=== PATIENT | male | born 1955 | race Hispanic/Latino ===

== ENCOUNTER 2019-05-03 10:54 | Inpatient (IN) ==
[2019-05-03] MEDS ORDERED: XYLOCAINE 1% INJ ONE ×2 (11:44→11:46)
[2019-05-03 13:04] LABS: BASO# 0.01 X1000 (0.0-0.2); BASO% 0.1 % (0.0-0.8); EOS# 0.06 X1000 (0.0-0.7); EOS% 0.7 % (0.0-10.0); HEMATOCRIT 40.6 % (42.0-52.0); HEMOGLOBIN 13.8 g/dL (14.0-18.0); IMM GRAN# 0.03 X1000 (0.0-0.04); IMM GRAN% 0.4 % (0.0-0.5); LYMPH# 1.06 X1000 (1.2-3.4); LYMPH% 12.4 % (20.5-51.1); MCH 30.2 PG (27-31); MCV 88.8 FL (81-99); MONO# 0.86 X1000 (0.11-0.59); MPV 9.7 FL (7.4-10.4); NEUT# 6.55 X1000 (1.4-6.5); NEUT% 76.4 % (42.2-75.2); PLT 330 X1000 (130-400); RBC 4.57 XMIL (4.7-6.1); RDW 12.2 % (11.5-14.5); WBC 8.57 X1000 (4.8-10.8)
[2019-05-03 13:32] LABS: HEMOGLOBIN A1C 9.1 % (4.8-6.0)
[2019-05-03 13:38] LABS: AGAP 7; ALB/GLOB RATIO 1.1; ALKALINE PHOSPHATASE 107 U/L (32-122); BUN 19 mg/dL (8-22); CALCIUM 9.6 mg/dL (8.8-10.2); CHLORIDE 103 mmol/L (98-107); COSMO 282; CREATININE 0.8 mg/dL (0.7-1.2); ESTIMATED GFR > 60; GLUCOSE 171 mg/dL (70-104); GOT 8 U/L (10-34); GPT 8 U/L (10-44); POTASSIUM 4.5 mmol/L (3.5-5.1); SODIUM 138 mmol/L (136-145); TCO2 28 mmol/L (25-35); TOTAL BILIRUBIN 0.27 mg/dL (0.20-1.00); TOTAL PROTEIN 7.5 g/dL (6.3-8.3)
--- NOTE | 2019-05-03 14:37 | PROVIDER DOCUMENTATION ---
This chart was entered by Rose Barnett Scribe, acting as scribe for Get Nino MD. HPI-Rash/Wound/ReCheck - General Chief Complaint: Sores/Lesions Stated Complaint: R-FOOT INFECTION Time Seen by Provider: 05/03/19 11:28 Source: family Allergies/Adverse Reactions: Allergies Allergy/AdvReac Type Severity Reaction Status Date / Time No Known Allergies Allergy Verified 04/26/19 11:49 Home Medications: Home Medication List Medication Instructions Recorded Confirmed Last Taken Type Carvedilol [Coreg] 1 tab PO BID 04/26/19 04/26/19 Unknown History Gabapentin 600 mg PO BID #10 tab 04/26/19 Unknown Rx Insulin Glargine [Basaglar] 35 units SQ DAILY 04/26/19 04/26/19 Unknown History Tamsulosin HCl 1 cap PO BID 04/26/19 04/26/19 Unknown History - History of Present Illness-Dermatology Nature of Presenting Problem: Patient is a 64 year old male who presents with blister to right foot. Family states blister has been present for 2 days. Denies fever and chills. Location: reports: feet (right lateral foot) Quality: reports: painful Severity: reports: mild Onset/Duration: reports: 2 days ago Timing: reports: still present Context/Associated Symptoms: reports: blisters Locality of Occurance: Home Similar Symptoms Previously?: Yes (present for 2 days) Recently seen or treated by another doctor?: No Review of Systems - Adult - REVIEW OF SYSTEMS - ADULT Constitutional: reports: no symptoms reported. denies: chills, fever, fatique Eyes: reports: no symptoms reported Ears, Nose, Mouth & Throat: reports: no symptoms reported Cardiovascular: reports: no symptoms reported Respiratory: reports: no symptoms reported Gastrointestinal: reports: no symptoms reported Genitourinary: reports: no symptoms reported Musculoskeletal: reports: no symptoms reported Integumentary: reports: see HPI, other (blister to right lateral foot). denies: hives Neurological: reports: no symptoms reported. denies: dizziness/vertigo, numbness, paresthesia Psychiatric: reports: no symptoms reported Endocrine: reports: no symptoms reported Hematologic/Lymphatic: reports: no symptoms reported Allergic/Immunologic: reports: no symptoms reported All Other Systems: Reviewed and Negative Past History - Adult - PAST MEDICAL HISTORY-ADULT Review of Records: reports: Old Records Reviewed, Nursing Assessment Review, Medications Reviewed, Social history reviewed & non-contributory. Major Childhood Illnesses: reports: denies history Cardiovascular: reports: HTN Respiratory: reports: other (recent pneumonia/hospitalized) Gastrointestinal: reports: denies history Obstetrical/Gynecological: reports: denies history Genitourinary: reports: ESRD, kidney disease Musculoskeletal: reports: arthritis Neurological: reports: denies history Endocrine/Immune: reports: Diabetes, other (ESRD) Other Conditions: reports: denies history - PRIOR SURGERIES/PROCEDURES Surgical/Procedure History: reports: appendectomy, other (amputation rt great toe; av shunt left arm; right 4th digit amputation; kidney transplant; left BKA) - PRIOR HOSPITALIZATIONS Prior Hospitalizations: reports: none - IMMUNIZATION STATUS Childhood Immunizations: See Nurse Assessment Flu Vaccine: See Nurse Assessment - FAMILY HISTORY Family History: reviewed, not pertinent - SOCIAL HISTORY Smoking: cigarettes (former) Alcohol Use Frequency: sober (former use) Living Situation: family Physical Exam-General - PHYSICAL EXAM-ADULT Initial Vital Signs Reviewed: Yes - CONSTITUTIONAL General Appearance: alert, no apparent distress. negative: lethargic, slow to respond - EYES Eyes: PERRL/EOMI - HEAD, EARS, NOSE, MOUTH & THROAT HENMT: moist mucous membranes - NECK Neck: full range of motion, supple - RESPIRATORY Respiratory: chest non-tender, lungs clear, normal breath sounds, no respiratory distress. negative: crackles, rhonchi, wheezing - CARDIOVASCULAR Cardiovascular: normal peripheral pulses, regular rate, rhythm, no edema, no JVD , no murmur. negative: tachycardia, systolic murmur - GASTROINTESTINAL (ABDOMEN) Abdominal Exam: normal bowel sounds, non tender, soft. negative: guarding, rebound - MUSCULOSKELETAL Extremity: other (right great toe amputation; right 4th finger amputation; left BKA; blister to right lateral foot. foreign body present to right lateral foot centered in blister. cellulitis of volar mid right foot but no ascending redness.). negative: deformity, swelling - SKIN Integumentary: normal color, normal turgor, warm/dry, other (blister to right lateral foot. foreign body present to right lateral foot near blister.). negative: cyanosis, decubitus, erythema - NEUROLOGIC Neurologic: director data analytics II-XII nml as tested, grossly normal. negative: aphasia, facial droop, motor weakness - PSYCHIATRIC Psych/Mental Status: normal mood/affect. negative: anxious, paranoid Progress - PLAN OF CARE/RESULTS Progress/Plan/Lab Results: Vital Signs - 8 hr 05/03/19 10:58 05/03/19 11:31 05/03/19 11:40 Temperature 97.5 F L Pulse Rate 83 Respiratory Rate 18 Blood Pressure 187/94 178/79 O2 Sat by Pulse Oximetry 99 100 98 05/03/19 11:50 05/03/19 12:00 05/03/19 12:10 Temperature Pulse Rate Respiratory Rate Blood Pressure O2 Sat by Pulse Oximetry 98 97 99 05/03/19 12:20 05/03/19 12:30 05/03/19 12:40 Temperature Pulse Rate Respiratory Rate Blood Pressure O2 Sat by Pulse Oximetry 98 99 99 05/03/19 12:50 05/03/19 13:00 05/03/19 13:10 Temperature Pulse Rate Respiratory Rate Blood Pressure O2 Sat by Pulse Oximetry 98 99 99 05/03/19 13:17 Temperature Pulse Rate Respiratory Rate Blood Pressure 201/90 O2 Sat by Pulse Oximetry 98 05/03/19 13:10 Gram Stain - Final Foot - Right Laboratory Results - last 24 hr 05/03/19 05/03/19 05/03/19 11:04 12:44 12:44 WBC 8.57 RBC 4.57 L Hgb 13.8 L Hct 40.6 L MCV 88.8 MCH 30.2 MCHC 34.0 RDW Std Deviation 12.2 Plt Count 330 MPV 9.7 Immature Gran % (Auto) 0.4 Neut % (Auto) 76.4 H Lymph % (Auto) 12.4 L [place] % (Auto) 10.0 H Eos % (Auto) 0.7 Baso % (Auto) 0.1 Immature Gran # (Auto) 0.03 Neut # (Auto) 6.55 H Lymph # (Auto) 1.06 L [place] # (Auto) 0.86 H Eos # (Auto) 0.06 Baso # (Auto) 0.01 Sodium 138 Potassium 4.5 Chloride 103 Carbon Dioxide 28 Anion Gap 7 BUN 19 Creatinine 0.8 Estimated GFR/1.73 m2 > 60 BUN/Creatinine Ratio 24 Glucose 171 H POC Glucose 219 H Estimat Average Glucose Hemoglobin A1c Calculated Osmolality 282 Calcium 9.6 Total Bilirubin 0.27 AST 8 L ALT 8 L Alkaline Phosphatase 107 Total Protein 7.5 Albumin 4.0 Globulin 3.5 Albumin/Globulin Ratio 1.1 Plasma Lactate 05/03/19 05/03/19 12:44 12:44 WBC RBC Hgb Hct MCV MCH MCHC RDW Std Deviation Plt Count MPV Immature Gran % (Auto) Neut % (Auto) Lymph % (Auto) [place] % (Auto) Eos % (Auto) Baso % (Auto) Immature Gran # (Auto) Neut # (Auto) Lymph # (Auto) [place] # (Auto) Eos # (Auto) Baso # (Auto) Sodium Potassium Chloride Carbon Dioxide Anion Gap BUN Creatinine Estimated GFR/1.73 m2 BUN/Creatinine Ratio Glucose POC Glucose Estimat Average Glucose 214 Hemoglobin A1c 9.1 H Calculated Osmolality Calcium Total Bilirubin AST ALT Alkaline Phosphatase Total Protein Albumin Globulin Albumin/Globulin Ratio Plasma Lactate 1.4 Orders Category Date Time Status Saline Loc NOW Care 05/03/19 11:40 Active A1C HGB W EST AVG GLUCOSE [CHEM] Stat Lab 05/03/19 12:44 Completed BLOOD CULTURE [BLDCUL] Stat Lab 05/03/19 13:08 Results CBC WITH ELECTRONIC DIFF [HEME] Stat Lab 05/03/19 12:44 Completed COMPREHENSIVE METABOLIC PANEL [CHEM] Stat Lab 05/03/19 12:44 Completed LACTATE, PLASMA [CHEM] Stat Lab 05/03/19 12:44 Completed URINALYSIS W/POSS RFLX CULT [URINALYSIS] Stat Lab 05/03/19 11:45 Uncollected WOUND CULTURE INC GRAM STAIN [RM] Routine Lab 05/03/19 13:10 Results Lidocaine 1% [Xylocaine 1%] Med 05/03/19 11:44 Discontinued 20 ml INJ NOW ONE Lidocaine 1% [Xylocaine 1%] Med 05/03/19 11:46 Discontinued 20 ml INJ NOW ONE Result Diagrams: 05/03/19 12:44 05/03/19 12:44 Procedures - ADDITIONAL PROCEDURES Additional Procedure: OTHER (foreign body removal from right lateral foot) Consent Form Signed if Applicable?: Yes Site Prep: Hibiclens Anesthetic: 1%, Lidocaine/Xylocaine Volume of Anesthetic (ml's): 4 Description of Procedure (Other): Dr. Nino injected 4 mL of Lidocaine into patient's right lateral foot. Dr. Nino used a 11 blade to remove a 1.2 cm wooden toothpick from patient's right lateral foot. Wound was packed and a sterile dressing was applied. Departure - Departure Date of Disposition Decision: 05/03/19 Time of Disposition Decision: 14:20 DIAGNOSIS: Foreign body in foot, right, Cellulitis of right foot, Diabetes, Renal transplant recipient, Immunodeficiency secondary to chemotherapy Disposition: ADMITTED INPATIENT 09 Certified Medical Emergency: Emergent Condition: Stable Referrals and Follow-Ups: None,PCP [Primary Care Provider] - - Critical Care Note This patient required my direct & personal management of CC.: Yes Total Time (mins): 35 Critical Care Statement: This patient required my direct personal management to treat or rule out processes, the absence of which, could potentiallly result in sudden, clinically significant life or limb threatening deterioration. Attestation - Physician/ VLADIMIR Attestation The physician spent face to face time with patient:: Yes Advanced Practice Provider documentation review:: Supervising physician onsite and consulted in the evaluation and care of this patient. The physician did have a face to face encounter with the patient. This chart was documented by the indicated scribe, (Rose Barnett Scribe) and accurately reflects the services I performed and decisions made by me, Get Nino MD, as attested by the provider's signature.
[2019-05-03 15:03] LABS: URINE SOURCE CLEAN CATCH
[2019-05-03 15:07] LABS: BILIRUBIN URINE NEGATIVE (NEGATIVE); BLOOD URINE NEGATIVE (NEGATIVE); COLOR YELLOW; GLUCOSE URINE >1000 mg/dL (NEGATIVE); KETONE URINE NEGATIVE (NEGATIVE); LEUKOCYTES URINE NEGATIVE (NEGATIVE); NITRITE URINE NEGATIVE (NEGATIVE); PH URINE 7.5; PROTEIN URINE NEGATIVE (NEGATIVE); SP GRAVITY URINE 1.014; TURBIDITY URINE CLEAR (CLEAR); UR EPITHELIAL CELLS <10 /HPF (<10); URINE BACTERIA NEGATIVE /HPF; URINE RBC <10 /HPF (<10); URINE WBC <10 /HPF (<10); UROBILINOGEN URINE NORMAL (NORMAL)
[2019-05-03] MEDS ORDERED: TYLENOL PO PRN (15:16)
[2019-05-03] MEDS ORDERED: ZOFRAN IV PRN (15:16)
[2019-05-03] MEDS ORDERED: VANCOMYCIN IV PER PHARMACY MISC SCH (15:30)
[2019-05-03] MEDS ORDERED: VANCOMYCIN 2,400 MG in NS 500 ML IV ONE (16:00)
[2019-05-03] MEDS: NS 1,000 ML IV SCH (16:27)
[2019-05-03] MEDS: NORCO-7.5 PO PRN (16:38)
[2019-05-03] MEDS: LOVENOX SUBQ SCH (16:38)
[2019-05-03] MEDS: HUMALOG SUBQ SCH (16:38)
[2019-05-03] MEDS: HUMULIN R SUBQ SCH ×2 (16:39→21:36)
--- NOTE | 2019-05-03 19:09 | HISTORY AND PHYSICAL ---
CHIEF COMPLAINT: Right foot pain. HISTORY OF PRESENT ILLNESS: This is a 64-year-old male who presented to the ER today with right foot pain that had been worsening for the past week. The patient presented to the [facility] a week ago with right foot pain and was subsequently discharged from the ER. The patient presents again to the ER today with the same pain to the right outer foot. The ER physician, after examining the right outer foot, noted a blister. After doing an incision and drainage to the right outer foot, he noted there was a toothpick down inside the foot. The toothpick was removed. The wound was cleaned and packed with iodoform strips, and labs were obtained on this patient. The patient has a past medical history of a kidney transplant at [facility] 3 years ago, hypertension, diabetes and hyperlipidemia. The patient also has a left BKA. The patient is receiving tacrolimus and CellCept for his transplant medications. After speaking with the transplant doctors at [facility], they recommended the patient to be on vancomycin and Zosyn, and be admitted to the hospital. [facility] is currently on diversion, and they were not able to accept the patient at the present time. The patient has some complaints of pain to the right outer foot. No other pain problems at this time are noted. The patient denies any nausea or vomiting, any weakness or any chest pain. The patient is stating that he is hungry at this present time. The patient does not speak Grenadian and requires an knit goods press hand. PAST MEDICAL HISTORY: Hypertension, diabetes, hyperlipidemia. PAST SURGICAL HISTORY: Kidney transplant 3 years ago at [facility], left BKA, left 5th toe amputation, left arm dialysis shunt. FAMILY HISTORY: No significant family history reported. SOCIAL HISTORY: The patient previously used to smoke half a pack of cigarettes per day, but he quit smoking in 1988. He does not use any recreational drugs and he denies any alcohol abuse. ALLERGIES: No known drug allergies. CURRENT MEDICATIONS: Coreg 6.25 mg p.o. b.i.d.; gabapentin 600 mg p.o. b.i.d.; NovoLog insulin 18 units subcutaneous before meals; insulin glargine 35 units subcutaneous daily; moxifloxacin 400 mg p.o. daily; mycophenolate mofetil 150 mg p.o. daily; Prograf 0.5 mg p.o. daily; Flomax 0.4 mg p.o. b.i.d. LABORATORY DATA: White blood cell count 8.57, hemoglobin 13.8, hematocrit 40.6, platelet count 330,000. Sodium 138, potassium 4.5, carbon dioxide 28, BUN 19, creatinine 0.8, GFR is greater than 60, glucose 171. A1c is 9.1. Calcium is 9.6, AST is 8, ALT is 8. Urinalysis is positive for a large amount of glucose, negative for everything else. REVIEW OF SYSTEMS: A 12-point review of systems was obtained. All are negative except for what is stated above in the HPI. PHYSICAL EXAMINATION: VITAL SIGNS: Temperature 97.5 degrees, pulse rate 74, respiratory rate 18, blood pressure 197/94, O2 saturation 98%. GENERAL: This is a well-nourished, well-developed 64-year-old male, in no acute distress at the present time, lying in the ER stretcher. HEENT: Atraumatic, normocephalic. Pupils equal, round and reactive to light. Mucous membranes are dry. No dentition noted. NECK: Supple. No lymphadenopathy. Trachea is midline. No JVD. CARDIOVASCULAR: Regular rate and rhythm. No murmurs, gallops or rubs appreciated. RESPIRATORY: Lungs are clear. Equal chest expansion. Respirations are nonlabored with no accessory muscle usage. GASTROINTESTINAL: Abdomen is soft, nontender, nondistended, with bowel sounds present x4. NEUROLOGICAL: The patient is awake, alert and oriented. Follows all commands. Cranial nerves intact. MUSCULOSKELETAL: The patient moves all extremities. The patient has painful movement noted to the right foot. There is a BKA noted to the left lower extremity but full movement noted. The patient does have prosthesis. SKIN: Warm, dry. Wound noted to the right outer foot with dressing intact. No bruises noted. ASSESSMENT: 1. Cellulitis. 2. Hypertension. 3. Diabetes. 4. Right kidney transplant from [facility], on immunosuppressive therapy. PLAN: We will admit this patient to the medical floor. Place on pvc monitor Start this patient on vancomycin and Zosyn. Consult wound nurse for wound care. Check FSBS ACHS and Sliding Scale Insulin low level as needed per protocol. Give IV fluid hydration. Repeat labs in the morning. Give pain medications as needed for pain. Resume all home medications. Dictated by TONEY Albright for Tip Javier MD Addendum: Patient seen and examined by myself. Agree with AUTOMATIC LEHR OPERATOR note. It reflects my assessment and plan. Patient is being admitted to hospital for right lower extremity cellulitis. Will start Vancomycin an Zosyn. He has history of renal transplant and will continue with home medications. Will monitor patient closely. cc: Tip Javier MD [facility] HOSPITALCalvin
[2019-05-03] MEDS: ZOSYN 3.375 GM in NS 50 ML IV SCH (21:37)
[2019-05-03] MEDS: NEURONTIN PO SCH (21:37)
[2019-05-03] MEDS: COREG PO SCH (21:37)
[2019-05-03] MEDS: FLOMAX PO SCH (21:38)
[2019-05-04] MEDS: ZOSYN 3.375 GM in NS 50 ML IV SCH ×4 (03:44→23:17)
[2019-05-04] MEDS: NS 1,000 ML IV SCH ×3 (04:37→19:04)
[2019-05-04] MEDS: HUMULIN R SUBQ SCH ×4 (06:29→22:21)
[2019-05-04] MEDS: HUMALOG SUBQ SCH ×3 (06:32→16:12)
[2019-05-04 07:25] LABS: BASO# 0.01 X1000 (0.0-0.2); BASO% 0.1 % (0.0-0.8); HEMATOCRIT 38.8 % (42.0-52.0); IMM GRAN# 0.03 X1000 (0.0-0.04); IMM GRAN% 0.3 % (0.0-0.5); LYMPH% 12.8 % (20.5-51.1)
[2019-05-04 07:36] LABS: EOS# 0.13 X1000 (0.0-0.7); EOS% 1.5 % (0.0-10.0); HEMOGLOBIN 13.1 g/dL (14.0-18.0); LYMPH# 1.14 X1000 (1.2-3.4); MCH 30.3 PG (27-31); MCHC 33.8 g/dL (33-37); MCV 89.8 FL (81-99); MONO# 0.74 X1000 (0.11-0.59); MONO% 8.3 % (1.7-9.3); MPV 10.1 FL (7.4-10.4); NEUT# 6.89 X1000 (1.4-6.5); PLT 314 X1000 (130-400); RBC 4.32 XMIL (4.7-6.1); RDW 12.1 % (11.5-14.5); WBC 8.94 X1000 (4.8-10.8)
[2019-05-04 07:46] LABS: AGAP 11; BUN 16 mg/dL (8-22); CALCIUM 8.8 mg/dL (8.8-10.2); CHLORIDE 106 mmol/L (98-107); COSMO 278; CREATININE 0.9 mg/dL (0.7-1.2); ESTIMATED GFR > 60; GLUCOSE 157 mg/dL (70-104); POTASSIUM 4.3 mmol/L (3.5-5.1); SODIUM 137 mmol/L (136-145); TCO2 20 mmol/L (25-35)
[2019-05-04] MEDS ORDERED: LEVAQUIN PO SCH (09:00)
[2019-05-04] MEDS: NEURONTIN PO SCH ×2 (10:14→22:19)
[2019-05-04] MEDS: CELLCEPT PO SCH (10:14)
[2019-05-04] MEDS: PROGRAF PO SCH ×3 (10:14→22:19)
[2019-05-04] MEDS: PRILOSEC PO SCH (10:15)
[2019-05-04] MEDS: FLOMAX PO SCH ×2 (10:15→22:19)
[2019-05-04] MEDS: LANTUS INSULIN SUBQ SCH (10:16)
[2019-05-04] MEDS: COREG PO SCH ×2 (10:16→22:19)
[2019-05-04] MEDS: VANCOMYCIN 1,900 MG in NS 500 ML IV SCH (11:25)
[2019-05-04] MEDS: NORCO-7.5 PO PRN (13:43)
--- NOTE | 2019-05-04 15:32 | PROGRESS NOTE ---
DATE: 05/04/2019 SUBJECTIVE: Patient reports that he is still complaining of excruciating pain in the area where apparently ER staff removed a small piece of wood from his left foot. OBJECTIVE: Vital Signs: Temperature 98.8 degrees, heart rate 77, respiratory rate 16, blood pressure 150/66, and O2 saturation 100% on room air. General: On examination, this is a chronically ill-appearing 64-year-old male lying in bed in no acute distress. Cardiovascular: S1, S2 heard. No murmurs, gallops, or rubs. Regular rate and rhythm. Respiratory: Clear bilaterally to auscultation. No work of breathing or using accessory muscles. Abdomen: Soft, nontender to palpation. Bowel sounds present. No organomegaly. Extremities: The patient has left lower extremity [id number] amputation of the right foot. The patient had a 5th toe amputation. The patient has in the plantar lateral aspect a small wound that is very painful to palpation. Neurological: Patient alert and oriented x3. Moves all 4 extremities. LABORATORY DATA: Reviewed. ASSESSMENT AND PLAN: 1. Right lower extremity cellulitis. At this point, we will continue with vancomycin and Zosyn. White cell count is normal. We will continue to check CBC. We will continue to monitor. 2. Right kidney transplant. We will continue with immunosuppressive medication. 3. Hypertension. Blood pressure is under control. We will continue with same management. 4. Diabetes mellitus type 2. We will continue with sliding scale insulin. Accu-Chek before meals and also at bedtime. 5. Disposition: Home. 6. Because of his renal transplant and his level of the amputation, I am planning to continue this patient with antibiotics. We will keep this patient over the weekend, and we will re- evaluate on Wednesday. cc: Tip Javier MD
[2019-05-04] MEDS: LOVENOX SUBQ SCH (16:13)
[2019-05-05] MEDS: ZOSYN 3.375 GM in NS 50 ML IV SCH ×4 (03:49→20:53)
[2019-05-05] MEDS: VANCOMYCIN 1,900 MG in NS 500 ML IV SCH (04:51)
[2019-05-05] MEDS: HUMULIN R SUBQ SCH ×4 (06:51→23:48)
[2019-05-05] MEDS: HUMALOG SUBQ SCH ×3 (06:51→17:33)
[2019-05-05 07:21] LABS: BASO# 0.01 X1000 (0.0-0.2); BASO% 0.1 % (0.0-0.8); EOS# 0.09 X1000 (0.0-0.7); EOS% 0.9 % (0.0-10.0); HEMOGLOBIN 12.8 g/dL (14.0-18.0); IMM GRAN# 0.02 X1000 (0.0-0.04); IMM GRAN% 0.2 % (0.0-0.5); LYMPH# 1.25 X1000 (1.2-3.4); LYMPH% 12.6 % (20.5-51.1); MCH 30.3 PG (27-31); MCHC 33.7 g/dL (33-37); MONO% 9.1 % (1.7-9.3); NEUT# 7.62 X1000 (1.4-6.5); NEUT% 77.1 % (42.2-75.2); PLT 293 X1000 (130-400); RBC 4.22 XMIL (4.7-6.1); RDW 12.1 % (11.5-14.5); WBC 9.89 X1000 (4.8-10.8)
[2019-05-05 07:58] LABS: AGAP 15; BUN 12 mg/dL (8-22); CALCIUM 8.9 mg/dL (8.8-10.2); CHLORIDE 108 mmol/L (98-107); COSMO 280; CREATININE 0.8 mg/dL (0.7-1.2); ESTIMATED GFR > 60; GLUCOSE 105 mg/dL (70-104); POTASSIUM 4.5 mmol/L (3.5-5.1); SODIUM 140 mmol/L (136-145); TCO2 17 mmol/L (25-35)
[2019-05-05] MEDS: LANTUS INSULIN SUBQ SCH (09:11)
[2019-05-05] MEDS: COREG PO SCH ×2 (09:13→20:53)
[2019-05-05] MEDS: PRILOSEC PO SCH (09:13)
[2019-05-05] MEDS: NEURONTIN PO SCH ×2 (09:13→20:53)
[2019-05-05] MEDS: CELLCEPT PO SCH (09:13)
[2019-05-05] MEDS: FLOMAX PO SCH ×2 (09:13→20:53)
[2019-05-05] MEDS: PROGRAF PO SCH ×2 (09:27→20:53)
[2019-05-05] MEDS: NORCO-7.5 PO PRN (11:26)
[2019-05-05] MEDS: NS 1,000 ML IV SCH ×2 (12:44→20:52)
[2019-05-05] MEDS: LOVENOX SUBQ SCH (15:48)
--- NOTE | 2019-05-05 16:07 | PROGRESS NOTE ---
DATE: 05/05/2019 SUBJECTIVE: Patient reports feeling fine. Denies any fever or chills. Is still having excruciating pain in the area in the lateral aspect of the right foot. OBJECTIVE: Vital Signs: Temperature 98 degrees, heart rate 96, respiratory rate 18, blood pressure 164/70, O2 saturation 100% on room air. General: This is a chronically ill-appearing, 64-year-old male, lying in bed, in no acute distress. Cardiovascular: S1, S2 heard. No murmurs, gallops, or rubs. Regular rate and rhythm. Respiratory: Clear bilaterally to auscultation. No work of breathing or using accessory muscles. Abdomen: Soft, nontender to palpation. Bowel sounds present. No organomegaly. Extremities: Patient has left lower extremity [id number] amputation and also in the right foot, he has a 5th toe amputation in the left plantar aspect. There is a small wound that looks like there is a foot wound there. Neurological: Patient alert and oriented x3. Moves 4 extremities. LABORATORY DATA: Reviewed. ASSESSMENT AND PLAN: 1. Right lower extremity cellulitis. I am not quite sure if this patient has a small abscess down there on the right lateral aspect of the foot or not. The patient is on vancomycin and Zosyn. We will continue with the same management. We will consult General Surgery to see if that needs to be drained or not. We will continue to monitor CBC. 2. Right kidney transplant. We will continue with immunosuppressant therapy. 3. Hypertension. Blood pressure is under control. We will continue with the same management. 4. Diabetes mellitus type 2. We will continue with sliding scale insulin and Accu-Chek before meals and also at bedtime. Hemoglobin A1c is 9.1, so he has been strongly recommended to have a better control of his medical conditions. 5. Disposition. At this point, we will continue to monitor this patient closely. We will see what General Surgery has to say.. cc: Tip Javier MD
--- NOTE | 2019-05-05 17:54 | Diag Imaging Result Doc PS360 ---
EXAM: FOOT 2 VIEWS RIGHT INDICATION: foreign body removed from foot TECHNIQUE: 2 views COMPARISON: 09/02/2018 FINDINGS: The great toe has been amputated just proximal to the MTP joint. This was also on the previous study. The bones are osteopenic. There is no discrete fracture, dislocation, or significant intrinsic osseous lesion, otherwise. The visualized joint spaces are essentially unremarkable. No embedded radiopaque foreign body is identified in the soft tissues. There is extensive atherosclerotic calcification. IMPRESSION: No evidence of acute bony abnormality and no embedded radiopaque foreign body identified. Electronically signed by Petar Weinberg 05/05/2019 5:51 PM
--- NOTE | 2019-05-06 00:31 | GENERAL SURGERY CONSULTATION ---
DATE: 05/05/2019 HISTORY OF PRESENT ILLNESS: This is a 64-year-old gentleman who has history of diabetes, neuropathy, and a left BKA. He also has a history of a renal transplant 3 years ago at [facility]. He came to the ER with a right foot wound and was found have a retained toothpick within his foot. He has been admitted for wound care and antibiotics. [facility] was unable to take the patient due to diversion. He has done okay since he has been here, but I have been consulted to assist with wound care. MEDICAL HISTORY: Hypertension, diabetes, hyperlipidemia. SURGICAL HISTORY: Renal transplant [facility] 3 years ago, he had a left BKA and a right 5th toe amputation, and he has had dialysis access by Dr. Douglas in the past, I believe in his left arm. FAMILY HISTORY: Reviewed, noncontributory. REVIEW OF SYSTEMS: Ten point negative. SOCIAL HISTORY: History of tobacco use, but denies any current use. MEDICATIONS: He does take CellCept and Prograf, as well as insulin. PHYSICAL EXAMINATION: Vital signs: He is afebrile, pulse 77, blood pressure 160/63, oxygen saturation 99%. General: He is alert. HEENT: No scleral icterus. No cervical masses. Cardiovascular: Normal rate. Pulmonary: No increased work of breathing. Abdomen: Soft. Integument: Warm, dry. Peripheral vascular: He has left BKA. Right foot is well perfused. There appears to be a healing surgical incision on the right lateral aspect of his foot, approximately mid metatarsal. LABS: White count 9, hematocrit 38, platelets 293,000. Creatinine 0.8. Glucose 105. Plain film x-ray showed no bony erosions and no retained foreign bodies of his right foot. ASSESSMENT AND PLAN: A 64-year-old gentleman [*] for renal transplant. He had a toothpick in his right foot, has a history of left below-knee amputation. The wound seems to be clean. I do not see any purulence. We need to confirm tetanus, as I cannot tell it has been given. We will continue to observe his wound closely, keeping it covered, as there is not really an open wound to require significant wound care. We will follow him closely. cc: Con Delong MD
[2019-05-06] MEDS: VANCOMYCIN 1,900 MG in NS 500 ML IV SCH ×2 (00:47→16:43)
[2019-05-06] MEDS: APRESOLINE IV PRN ×2 (01:55→20:10)
[2019-05-06] MEDS: ZOSYN 3.375 GM in NS 50 ML IV SCH ×4 (04:16→20:10)
[2019-05-06] MEDS: HUMALOG SUBQ SCH ×3 (06:13→16:44)
[2019-05-06] MEDS: HUMULIN R SUBQ SCH ×4 (06:13→20:25)
[2019-05-06 07:24] LABS: BASO# 0.01 X1000 (0.0-0.2); BASO% 0.1 % (0.0-0.8); EOS# 0.06 X1000 (0.0-0.7); EOS% 0.5 % (0.0-10.0); HEMATOCRIT 36.5 % (42.0-52.0); HEMOGLOBIN 12.3 g/dL (14.0-18.0); IMM GRAN# 0.03 X1000 (0.0-0.04); IMM GRAN% 0.3 % (0.0-0.5); LYMPH# 1.06 X1000 (1.2-3.4); LYMPH% 9.5 % (20.5-51.1); MCH 30.1 PG (27-31); MCHC 33.7 g/dL (33-37); MCV 89.2 FL (81-99); MONO# 0.99 X1000 (0.11-0.59); MONO% 8.9 % (1.7-9.3); MPV 9.9 FL (7.4-10.4); NEUT# 9.02 X1000 (1.4-6.5); NEUT% 80.7 % (42.2-75.2); PLT 292 X1000 (130-400); RBC 4.09 XMIL (4.7-6.1); RDW 12.2 % (11.5-14.5); WBC 11.17 X1000 (4.8-10.8)
[2019-05-06 07:46] LABS: AGAP 10; BUN 10 mg/dL (8-22); CALCIUM 8.6 mg/dL (8.8-10.2); CHLORIDE 107 mmol/L (98-107); COSMO 277; CREATININE 0.8 mg/dL (0.7-1.2); ESTIMATED GFR > 60; GLUCOSE 207 mg/dL (70-104); SODIUM 136 mmol/L (136-145); TCO2 19 mmol/L (25-35)
[2019-05-06] MEDS: COREG PO SCH ×2 (08:30→20:11)
[2019-05-06] MEDS: CELLCEPT PO SCH (08:30)
[2019-05-06] MEDS: NEURONTIN PO SCH ×2 (08:30→20:11)
[2019-05-06] MEDS: PROGRAF PO SCH ×2 (08:30→20:11)
[2019-05-06] MEDS: PRILOSEC PO SCH (08:30)
[2019-05-06] MEDS: FLOMAX PO SCH ×2 (08:30→20:11)
[2019-05-06] MEDS: LANTUS INSULIN SUBQ SCH (08:31)
[2019-05-06] MEDS: NORCO-7.5 PO PRN (08:58)
[2019-05-06] MEDS: NS 1,000 ML IV SCH (10:15)
--- NOTE | 2019-05-06 15:08 | PROGRESS NOTE ---
DATE: 05/06/2019 SUBJECTIVE: The patient reports feeling fine. Pain is a little bit better with pain medications. Pain in the lateral aspect of the right foot. OBJECTIVE: Vital Signs: Temperature. 98.2 degrees, heart rate 78, respiratory 16, blood pressure 108/47, O2 saturation 100% on room air. General: This is a chronically ill-appearing, 64-year-old male, lying in bed, in no acute distress. Cardiovascular: S1, S2 heard. No murmurs, gallops, or rubs. Regular rate and rhythm. Respiratory: Clear bilaterally to auscultation. No work of breathing or using accessory muscles. Abdomen: Soft, nontender to palpation. Bowel sounds present. No organomegaly. Extremities: Patient has a left below-the- knee amputation and also in the right foot he had a 5th toe amputation. In the left plantar aspect there is a small wound but no drainage coming out. Neurological: Patient alert oriented x3. Moves 4 extremities. LABORATORY DATA: Reviewed. ASSESSMENT AND PLAN: 1. Right lower extremity cellulitis. The patient evaluated by surgery. He does not have any small abscess. No need for any surgical approach. We will continue with IV antibiotics in this case, vancomycin and Zosyn and if the pain is getting better tomorrow, we will discharge him. 2. Right kidney transplant. We will continue with immunosuppressant therapy. 3. Hypertension. Blood pressure is under control. We will continue with same management. 4. Diabetes mellitus type 2. We will continue with sliding scale insulin. Accu-Chek before meals and also at bedtime. DISPOSITION: If this patient is getting better tomorrow with less pain in the right foot will discharge him tomorrow. cc: Tip Javier MD
[2019-05-06] MEDS: LOVENOX SUBQ SCH (16:43)
--- NOTE | 2019-05-06 18:26 | GENERAL SURGERY PROGRESS NOTE ---
DATE: 05/06/2019 SUBJECTIVE: No events overnight. No fevers. No tachycardia. OBJECTIVE: General: He is alert. Extremities: His right foot wound seems to be healing with no fluctuance, no cellulitis. LABS: White count is up slightly to 11, hematocrit is 26, creatinine 0.8, glucose is as high as 207. ASSESSMENT/PLAN: A 62-year-old gentleman status post removal of retained foreign body in his right lateral foot. The wound seems to be healing with no signs of ongoing infection, other than a mild leukocytosis. We will monitor him through the day today. It would be a reasonable transition to oral antibiotics going forward. cc: Con Delong MD
[2019-05-07] MEDS: ZOSYN 3.375 GM in NS 50 ML IV SCH ×2 (03:23→09:35)
[2019-05-07] MEDS: NS 1,000 ML IV SCH (04:43)
[2019-05-07 06:43] LABS: BASO# 0.01 X1000 (0.0-0.2); BASO% 0.1 % (0.0-0.8); EOS# 0.06 X1000 (0.0-0.7); EOS% 0.7 % (0.0-10.0); HEMATOCRIT 35.1 % (42.0-52.0); HEMOGLOBIN 11.9 g/dL (14.0-18.0); IMM GRAN# 0.02 X1000 (0.0-0.04); IMM GRAN% 0.2 % (0.0-0.5); LYMPH% 12.1 % (20.5-51.1); MCH 30.4 PG (27-31); MCHC 33.9 g/dL (33-37); MCV 89.8 FL (81-99); MONO# 0.82 X1000 (0.11-0.59); MPV 9.7 FL (7.4-10.4); NEUT# 7.08 X1000 (1.4-6.5); NEUT% 77.9 % (42.2-75.2); PLT 316 X1000 (130-400); RBC 3.91 XMIL (4.7-6.1); RDW 12.3 % (11.5-14.5); WBC 9.09 X1000 (4.8-10.8)
[2019-05-07] MEDS: HUMULIN R SUBQ SCH (06:46)
[2019-05-07] MEDS: HUMALOG SUBQ SCH (06:51)
[2019-05-07 07:10] LABS: AGAP 11; BUN 12 mg/dL (8-22); CALCIUM 8.9 mg/dL (8.8-10.2); CHLORIDE 109 mmol/L (98-107); COSMO 285; CREATININE 0.9 mg/dL (0.7-1.2); ESTIMATED GFR > 60; GLUCOSE 232 mg/dL (70-104); POTASSIUM 4.2 mmol/L (3.5-5.1); SODIUM 139 mmol/L (136-145); TCO2 19 mmol/L (25-35)
[2019-05-07] MEDS: FLOMAX PO SCH (09:33)
[2019-05-07] MEDS: CELLCEPT PO SCH (09:33)
[2019-05-07] MEDS: PROGRAF PO SCH (09:34)
[2019-05-07] MEDS: COREG PO SCH (09:34)
[2019-05-07] MEDS: NEURONTIN PO SCH (09:34)
[2019-05-07] MEDS: PRILOSEC PO SCH (09:35)
[2019-05-07] MEDS: LANTUS INSULIN SUBQ SCH (09:48)
--- NOTE | 2019-05-07 11:03 | DISCHARGE SUMMARY ---
ADMISSION DATE: 05/03/2019 DISCHARGE DATE: 05/07/2019 PRIMARY CARE PHYSICIAN: None. ADMISSION DIAGNOSES: 1. Cellulitis. 2. Hypertension. 3. Diabetes. 4. Right kidney transplant from [facility], on immunosuppressive therapy. DISCHARGE DIAGNOSES: 1. Right lower extremity cellulitis. 2. Right kidney transplant. 3. Hypertension. 4. Diabetes type 2. SUMMARY OF FINDINGS: This is a 64-year-old male who presented to the emergency room with worsening right foot pain over the past week. Had been to the hospital about a week prior and had been subsequently discharged from the ER. Now having the same pain in the right outer foot. He was noted to have a blister. After doing an incision and drainage to the right outer foot, he noted there was a toothpick inside of the foot. The toothpick was removed. The wound was cleaned and packed with iodoform strips. He was admitted and placed on IV antibiotics. We did consult general surgery who felt that the wound was healing with no signs of ongoing infection. No surgical intervention needed to be done at this time. He has responded well to the IV antibiotics. White count is normal at 9.09 today. He has remained afebrile for greater than 24 hours so it is now felt that he can safely be discharged home today. DISCHARGE MEDICATIONS: Include Coreg 12.5 mg p.o. b.i.d., gabapentin 600 mg p.o. b.i.d., a prescription for [place] 7.5 one p.o. q.6 hours p.r.n., NovoLog 18 units subcutaneously before meals, Basaglar 35 units subcutaneous daily, mycophenolate 250 mg 4 tablets p.o. b.i.d., CellCept 250 mg p.o. daily, Prograf 0.5 mg p.o. daily and 1 mg p.o. at bedtime, tamsulosin 0.4 mg p.o. b.i.d., Augmentin 875 mg p.o. q.12 hours #20 with no refills, doxycycline 100 mg p.o. b.i.d. #20 with no refills. FOLLOWUP: He will need to follow up with his primary care physician. We can give him the physician referral line to obtain a primary care in the next 1 to 2 weeks. All discharge instructions have been reviewed with the patient and he verbalized understanding. Dictated by TONEY Billingsley for Tip Javier MD Addendum: Patient seen and examined by myself. Agree with TONEY note. It reflects my assessment and plan. Patient is being discharged in stable condition. Will be seen by PCP in a week. cc: TONEY Billingsley MD [facility]
[2019-05-07 11:16] VITALS: BP 186/82
--- NOTE | 2019-05-07 13:34 | GENERAL SURGERY PROGRESS NOTE ---
DATE: 05/07/2019 SUBJECTIVE: He is doing well. No pain in his foot. No fevers. No tachycardia. OBJECTIVE: Vital Signs: Blood pressure 115/55. General: He is alert. Cardiovascular: Normal rate. Musculoskeletal: His right lateral foot shows no cellulitis, with a healing incision. LABORATORY DATA: White count is normal. Creatinine is 0.9. ASSESSMENT AND PLAN: A 64-year-old gentleman with retained foreign body in his right foot. It has been removed. No signs of infection. It would be reasonable to transition to oral antibiotics and allow him to follow up as an outpatient. cc: Con Delong MD
== END 2019-05-07 12:49 | disposition home or self-care (01) | DRG 602 ==
LOC: ED 10:54 → 3N 15:39
PROVIDERS: ATTEND Internal Medicine
CPT/HCPCS: 73620; 80048; 80053; 80202; 81001; 82948; 83036; 83605; 85025; 87040; 87070; 87077; 87186; 99285; 99291; A9270; J0360; J1650; J1815; J2543; J3370; J7030; J7040; J7517; XXXXX